=== PATIENT | male | born 1965 | race Caucasian/White ===

== ENCOUNTER 2017-09-10 13:19 | Emergency (ER) | payer OTHER ==
[~2017-09-10] VITALS: Ht 180.3 cm; Wt 80.8 kg
[2017-09-10 16:43] VITALS: BP 138/78
== END 2017-09-10 17:22 | disposition home or self-care (01) ==
LOC: ED 15:50
DX: L03.115 Cellulitis of right lower limb (principal)
CPT/HCPCS: 99284